=== PATIENT | male | born 1965 | race Two or more races ===

== ENCOUNTER 2022-04-03 09:30 | Inpatient (IN) | payer OTHER ==
[~2022-04-03] VITALS: Ht 175.3 cm; Wt 107.5 kg
[~2022-04-03 09:30] MED LIST: CRESTOR10 MG PO; METFORMIN HCL500 MG PO
[2022-04-03] MEDS ORDERED: LANTUS (10:32)
[2022-04-03] MEDS ORDERED: CRESTOR10 MG PO (10:33)
[2022-04-03] MEDS ORDERED: LOSARTAN POTASS25 MG PO (10:33)
[2022-04-03] MEDS ORDERED: FARXIGA10 MG PO (14:02)
[2022-04-03] MEDS ORDERED: HUMALOG100 UNIT/2 SUBCUTANEO (14:03)
[2022-04-06] MEDS ORDERED: LANTUS SOL100 UNIT/1 (08:11)
[2022-04-06] MEDS ORDERED: FAMOTIDINE20 MG (08:12)
[2022-04-09] MEDS ORDERED: ULTRACET PO (10:03)
[2022-04-09] MEDS ORDERED: PEPCID20 MG PO (10:03)
[2022-04-09] MEDS ORDERED: DICLOFENAC SODI75 MG PO (10:04)
== END 2022-04-09 11:31 | disposition home or self-care (01) | DRG 329 ==
LOC: SURH 04-05 09:30 → O/R 04-05 09:54 → SURG 04-05 09:54
PROVIDERS: ADMIT Surgery; ATTEND Surgery
PROC: 0DBP4ZZ Excision of Rectum, Percutaneous Endoscopic Approach (ICD-10-PCS; 2022-04-05)
PROC: 0DTN4ZZ Resection of Sigmoid Colon, Percutaneous Endoscopic Approach (ICD-10-PCS; 2022-04-05)
PROC: 0DJD8ZZ Inspection of Lower Intestinal Tract, Via Natural or Artificial Opening Endoscopic (ICD-10-PCS; 2022-04-05)
PROC: 0DT84ZZ Resection of Small Intestine, Percutaneous Endoscopic Approach (ICD-10-PCS; principal; 2022-04-05 12:12)
DX: K57.20 Diverticulitis of large intestine with perforation and abscess without bleeding (principal); K65.8 Other peritonitis; K56.600 Partial intestinal obstruction, unspecified as to cause; K63.2 Fistula of intestine; R10.32 Left lower quadrant pain; D37.4 Neoplasm of uncertain behavior of colon; Z20.822 Contact with and (suspected) exposure to COVID-19